=== PATIENT | male | born 1975 | race Caucasian/White ===

== ENCOUNTER 2017-06-30 13:00 | Emergency (ER) | payer OTHER ==
--- NOTE | 2017-06-30 13:05 | ED Physician Documentation ---
PD HPI HEENT - Stated complaint Stated Complaint: THROAT PAIN - History obtained from History obtained from: Patient - History of Present Illness Timing - onset: How many days ago (2-3) Timing - duration: Days Timing - details: Gradual onset, Still present Review of Systems Constitutional: reports: Myalgias. denies: Fever, Chills Nose: reports: Congestion Throat: reports: Sore throat Respiratory: reports: Cough (mild) GI: denies: Nausea, Vomiting Skin: denies: Rash PD PAST MEDICAL HISTORY - Past Medical History Musculoskeletal: Chronic back pain - Past Surgical History Past Surgical History: Yes General: Appendectomy - Present Medications Home Medications: Ambulatory Orders Medication Instructions Recorded Confirmed Cyclobenzaprine [Flexeril] 10 mg PO TID PRN #20 tablet 11/10/15 HYDROcod/ACETAM 5/325 [[place] 5/325] 1 - 2 ea PO Q6H PRN #15 tablet 11/10/15 Loratadine 1 tab DAILY 11/10/15 11/10/15 Benzonatate [Tessalon] 100 mg PO TID PRN #25 capsule 06/30/17 Dexamethasone [Decadron] 4 mg PO DAILY #5 tablet 06/30/17 Tramadol HCl 50 mg PO Q6H PRN #15 tablet 06/30/17 - Allergies Allergies/Adverse Reactions: Allergies Allergy/AdvReac Type Severity Reaction Status Date / Time No Known Drug Allergies Allergy Verified 11/10/15 15:18 - Social History Does the pt smoke?: No Smoking Status: Never smoker Does the pt drink ETOH?: Yes PD ED PE NORMAL - Vitals Vital signs reviewed: Yes - General General: Alert and oriented X 3, No acute distress, Well developed/nourished - HEENT HEENT: Ears normal, Moist mucous membranes, Pharynx benign (mild swelling of tonsils but still pink and no exudate.) - Neck Neck: Supple, no meningeal sign, No adenopathy (minimal right sided) - Cardiac Cardiac: RRR, No murmur - Respiratory Respiratory: Clear bilaterally - Derm Derm: Normal color, Warm and dry - Neuro Neuro: Alert and oriented X 3, No motor deficit, Normal speech Results - Vitals Vitals: Vital Signs - 24 hr 06/30/17 06/30/17 13:07 15:05 Temperature 36.6 C Heart Rate 74 88 Respiratory 16 18 Rate Blood Pressure 129/81 H O2 Saturation 100 Oxygen O2 Source Room air - Labs Labs: Microbiology 06/30/17 13:19 Group A Strep Throat Culture - Final Throat Beta Hemolytic Strep Group C Laboratory Tests 06/30/17 13:19 Group A Strep Rapid Negative PD MEDICAL DECISION MAKING - ED course Complexity details: considered differential (low Centor score and rapid test negative. Presume viral. ), d/w patient Departure - Departure Disposition: 01 Home, Self Care Clinical Impression: Upper respiratory infection Qualifiers: URI type: unspecified URI Qualified Code(s): J06.9 - Acute upper respiratory infection, unspecified Condition: Stable Record reviewed to determine appropriate education?: Yes Instructions: ED Upper Resp Infec No Abx Tx Prescriptions: Benzonatate [Tessalon] 100 mg PO TID PRN #25 capsule PRN Reason: Cough Dexamethasone [Decadron] 4 mg PO DAILY #5 tablet Tramadol HCl 50 mg PO Q6H PRN #15 tablet PRN Reason: Pain Comments: The rapid strep test is negative. Resume this is a viral illness. Drink lots of fluids. Tylenol or ibuprofen if needed for fevers and pains. Decadron steroid anti-inflammatory daily for 5 days to help with symptoms of cough and sore throat. Tessalon if needed for cough. Add tramadol if needed for pains or cough. Recheck if not improving over the next few days. 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 Discharge Date/Time: 06/30/17 15:06
[2017-06-30 13:11] VITALS: BP 129/81
[2017-06-30] MEDS ORDERED: BENZONATATE 100 MG CAPSULE PO STA (13:23)
[2017-06-30] MEDS ORDERED: DEXAMETHASONE 10 MG/ML VIAL PO STA (13:23)
== END 2017-06-30 15:06 | disposition home or self-care (01) ==
LOC: ED 13:00
DX: J06.9 Acute upper respiratory infection, unspecified (principal)
CPT/HCPCS: 87070; 87077; 87430; 99283; A9270